=== PATIENT | female | born 1990 | race African-American/Black ===

== ENCOUNTER 2022-04-01 18:18 | Emergency (ER) | payer MEDICAID ==
[~2022-04-01] VITALS: Ht 167.6 cm; Wt 89.8 kg
--- NOTE | 2022-04-01 19:37 | NUR ---
[place] [address] [place] [place] BED 14. AAO NOT IN RESP DISTRESS. BROUGHT INFOR BIZZARE BEHAVIOR. RUNNING IN THE STREET, PER REPORT PT WAS YELLING. DENIES SI NOR HI. MD WAS AT THE BEDSIDE. PT IN MONITOR SITTER WITHIN SIGHT.
[2022-04-01 19:54] LABS: BASOPHILS % (AUTO) 0.2 % (0.0-2.0); EOSINOPHILS % (AUTO) 0.9 % (0.0-6.0); HEMATOCRIT 33 % (33-45); LYMPHOCYTES # (AUTO) 3.2 K/uL (0.8-4.8); LYMPHOCYTES % (AUTO) 40.4 % (20.0-44.0); MEAN CORPUSCULAR HGB CONC 33 g/dl (31.0-36.0); MEAN CORPUSCULAR VOLUME 85 fL (82-100); MONOCYTES # (AUTO) 0.3 K/uL (0.1-1.30); MONOCYTES % (AUTO) 4.2 % (2.0-12.0); NEUTROPHILS # (AUTO) 4.3 K/uL (1.8-8.9); NEUTROPHILS % (AUTO) 54.3 % (43.0-81.0); PLATELET COUNT (AUTO) 246 K/uL (150-450); RED BLOOD CELL COUNT(AUTO) 3.92 MIL/uL (4.0-5.2); WHITE BLOOD COUNT (AUTO) 7.9 K/uL (4.3-11.0)
[2022-04-01 20:37] LABS: CALCIUM, SERUM 8.8 mg/dL (8.5-10.1); CARBON DIOXIDE 29 mmol/L (21-32); CHLORIDE 105 mmol/L (98-107); CREATININE 0.9 mg/dL (0.6-1.3); GLUCOSE 85 mg/dL (74-106); POTASSIUM 3.5 mmol/L (3.5-5.1); SODIUM SERUM 139 mmol/L (136-145); UREA NITROGEN, BLOOD 15 mg/dL (7-18)
[2022-04-01 20:46] LABS: ALANINE AMINOTRANSFERASE 22 U/L (12-78); ALBUMIN 3.8 g/dL (3.4-5.0); ALCOHOL, BLOOD < 3 mg/dL (0-0); ALKALINE PHOSPHATASE 95 U/L (46-116); ASPARTATE AMINOTRANSFERASE 17 U/L (15-37); BILIRUBIN,DIRECT 0.1 mg/dL (0.0-0.2); BILIRUBIN,TOTAL 0.2 mg/dL (0.2-1.0); TOTAL PROTEIN, SERUM 7.6 g/dL (6.4-8.2)
[2022-04-01 20:57] LABS: ACETAMINOPHEN 0 ug/ml (10-30)
--- NOTE | 2022-04-01 21:44 | NUR ---
URINE COLLECTED AND SENT TO LAB
[2022-04-01 23:11] LABS: BILIRUBIN,URINE NEGATIVE (NEGATIVE); COLOR,URINE YELLOW (YELLOW); LEUKOCYTE ESTERASE ,URINE NEGATIVE (NEGATIVE); NITRITE, URINE NEGATIVE (NEGATIVE); PROTEIN,URINE NEGATIVE (NEGATIVE); UGLUCOSE NEGATIVE (NEGATIVE); UROBILINOGEN,URINE 0.2 EU/dL (0.2)
--- NOTE | 2022-04-02 00:02 | NUR ---
PT IN BED SLEEPING.
[2022-04-02] MEDS ORDERED: ACETAMINOPHEN 325 MG TABLET PO ONE (02:00)
[2022-04-02] MEDS ORDERED: ACETAMINOPHEN 325 MG TABLET ONE (02:23)
[2022-04-02] MEDS ORDERED: OLANZAPINE 10 MG VIAL IM ONE ×2 (03:21→03:30)
--- NOTE | 2022-04-02 07:22 | NUR ---
PT IS RESTING. AWAITING FOR ACCEPTANCE AT THE [facility]
--- NOTE | 2022-04-02 08:36 | NUR ---
PT ACCEPTED TO [facility] UNDER DR. UHTCHINS PLEASE CALL [phone] FOR REPORT. PRODUCTION STAFF WORKER WILL COLLECT PT AT 0900.
[2022-04-02 09:32] VITALS: BP 130/60
--- NOTE | 2022-04-02 09:39 | NUR ---
PATIENT PICKED UP BY [facility] IN STABLE CONDITION. ALL BELONGINGS GIVEN BACK TO PATIENT. IN PROPER CLOTHING UPON DISCHARGE.
== END 2022-04-02 09:42 ==
LOC: ER 18:30
DX: R46.2 Strange and inexplicable behavior (principal); R00.0 Tachycardia, unspecified; Z59.00 Homelessness unspecified; Z20.822 Contact with and (suspected) exposure to COVID-19; R03.0 Elevated blood-pressure reading, without diagnosis of hypertension
CPT/HCPCS: 99285; 85025; 80048; 80076; 84703; 81003; 36415; 87426; 80143; 80320; 80307; 96372; C9803; J3490; G0480